=== PATIENT | female | born 1960 | race Caucasian/White ===

== ENCOUNTER → 2022-10-15 14:00 | Outpatient (CLI) | payer OTHER, SELFPAY | PROVIDERS: PCP Nurse Practitioner; Visit Provider Nurse Practitioner | DX: N30.01 Acute cystitis with hematuria (principal); B96.29 Other Escherichia coli [E. coli] as the cause of diseases classified elsewhere | CPT/HCPCS: 87086; 87088; 87186 ==

== ENCOUNTER → 2022-11-13 14:30 | Outpatient (CLI) | payer OTHER, SELFPAY | PROVIDERS: PCP Nurse Practitioner; Visit Provider Nurse Practitioner | DX: R30.0 Dysuria (principal); R31.9 Hematuria, unspecified; B96.29 Other Escherichia coli [E. coli] as the cause of diseases classified elsewhere | CPT/HCPCS: 87086; 87088; 87186 ==

== ENCOUNTER → 2022-11-28 09:45 | Outpatient (CLI) | payer OTHER, SELFPAY | PROVIDERS: PCP Nurse Practitioner; Visit Provider Nurse Practitioner | DX: R30.0 Dysuria (principal) | CPT/HCPCS: 87086 ==

== ENCOUNTER → 2023-01-28 13:45 | Outpatient (CLI) | payer OTHER, SELFPAY | PROVIDERS: PCP Nurse Practitioner; Visit Provider Nurse Practitioner | DX: R30.0 Dysuria (principal); B96.89 Other specified bacterial agents as the cause of diseases classified elsewhere | CPT/HCPCS: 87086; 87088; 87186 ==

== ENCOUNTER → 2023-02-18 13:36 | Outpatient (CLI) | payer OTHER, SELFPAY ==
--- NOTE | 2023-02-18 13:39 | US_ITS ---
PROCEDURE INFORMATION: Exam: US Left Breast, Complete Exam date and time: 02/18/2023 3:11 PM Age: 62 years old Clinical indication: Left breast pain at upper outer quadrant TECHNIQUE: Imaging protocol: Complete ultrasound of all four quadrants of the left breast and the retroareolar regions, including ultrasound of the axilla when performed. COMPARISON: No relevant prior studies available. FINDINGS: Breast: Sonographic images of the left breast including the retroareolar region, all 4 quadrants and the axilla do not demonstrate any solid masses. Few scattered subcentimeter cysts are noted in the upper outer quadrant where the patient reports pain. The dominant cyst measures 0.5 cm in greatest dimension. No architectural distortion or acoustical shadowing. No skin thickening or axillary adenopathy. IMPRESSION: Patient to return for a diagnostic left mammogram for full evaluation of the patient's complaint of focal left breast pain ASSESSMENT: BI-RADS Category 0: Incomplete- Need Additional Imaging Evaluation and/or Prior Mammograms for Comparison
== END ==
PROVIDERS: PCP Nurse Practitioner; Visit Provider Nurse Practitioner
DX: N64.4 Mastodynia (principal)
CPT/HCPCS: 76641

== ENCOUNTER → 2023-04-17 23:22 | Outpatient (CLI) | payer OTHER, SELFPAY ==
[2023-04-17 18:37] LABS: Basophils % 0.4 % (0.1-2.0); Eosinophils # 0.3 K/mm3 (0.0-0.4); Eosinophils % 4.5 % (0.1-12.0); Hematocrit 40.4 % (37.0-47.0); Hemoglobin 12.7 g/dL (12.2-16.2); Lymphocytes # 1.9 K/mm3 (0.7-4.5); Mean Corpuscular HGB Conc 31.6 g/dL (31.8-35.4); Mean Corpuscular Hemoglobin 29.2 pg (27.0-31.2); Mean Corpuscular Volume 92.7 fl (81-99); Mean Platelet Volume 9.1 fl (7.4-10.4); Monocytes # 0.4 K/mm3 (0.1-1.0); Monocytes % 6.1 % (1.7-9.3); Neutrophils # 4.3 K/mm3 (1.8-7.8); Neutrophils % 61.9 % (37.0-80.0); Platelet Count 318 K/mm3 (142-424); Red Blood Count 4.35 M/mm3 (4.20-5.40); Red Cell Distribution Width 12.8 % (11.5-17.5)
[2023-04-17 18:42] LABS: Alanine Aminotransferase 19 U/L (12-78); Albumin Level 3.9 g/dl (3.5-5.0); Albumin/Globulin Ratio 1.5 (1.1-1.8); Alkaline Phosphatase 82 U/L (38-126); Anion Gap 12.2 mEq/L (5-15); Aspartate Amino Transferase 24 U/L (14-36); Bilirubin,Total 0.4 mg/dl (0.2-1.3); Blood Urea Nitrogen 18 mg/dl (7-17); Carbon Dioxide 30 mmol/L (22.0-30.0); Chloride 102 mmol/L (98-107); Chol/HDL Ratio 4.9 (1-3.5); Cholesterol 262 mg/dl (140-200); Estimated Glomerular Filt Rate 73 ml/min (>60); GFR (African American) 89 ML/MIN (>60); Globulin 2.6 g/dL (1.3-3.2); Glucose 123 mg/dl (74-100); HDL Cholesterol 54 mg/dl (40-60); Potassium 4.2 mmoL/L (3.5-5.1); Sodium 140 mmol/L (136-145); Total Protein,Serum 6.5 g/dl (6.3-8.2); Triglycerides 180 mg/dl (30-150); VLDL Cholesterol 36 mg/dL (0-40)
[2023-04-17 18:53] LABS: Direct LDL Cholesterol 154.93 mg/dL (100-129)
[2023-04-17 19:09] LABS: Hemoglobin A1C 6.8 % (4.0-6.0)
[2023-04-17 19:12] LABS: Thyroid Stimulating Hormone 3.64 uIU/mL (0.465-4.68)
[2023-04-17 19:31] LABS: Vitamin B12 363 pg/mL (239-931)
[2023-04-28 19:10] LABS: 1,25 Dihydroxy Vitamin D 64 pg/mL (.); 1,25-Dihydroxy, Vitamin D-2 <10 pg/mL (.); 1,25-Dihydroxy, Vitamin D-3 62 pg/mL (.)
== END ==
PROVIDERS: PCP Nurse Practitioner; Visit Provider Nurse Practitioner
DX: E11.9 Type 2 diabetes mellitus without complications (principal); E78.5 Hyperlipidemia, unspecified; E66.9 Obesity, unspecified; Z68.35 Body mass index [BMI] 35.0-35.9, adult
CPT/HCPCS: 80053; 80061; 82607; 82652; 83036; 84443; 85025

== ENCOUNTER 2023-11-13 17:54 | Outpatient (CLI) | payer OTHER, SELFPAY ==
[2023-11-13 19:19] LABS: Basophils # 0.1 K/mm3 (0-0.2); Basophils % 0.7 % (0.1-2.0); Eosinophils # 0.2 K/mm3 (0.0-0.4); Eosinophils % 2.5 % (0.1-12.0); Hematocrit 40.9 % (37.0-47.0); Hemoglobin 13.3 g/dL (12.2-16.2); Lymphocytes # 2.1 K/mm3 (0.7-4.5); Lymphocytes % 25.8 % (10-50); Mean Corpuscular HGB Conc 32.6 g/dL (31.8-35.4); Mean Corpuscular Hemoglobin 30.6 pg (27.0-31.2); Mean Corpuscular Volume 93.9 fl (81-99); Mean Platelet Volume 9.2 fl (7.4-10.4); Monocytes # 0.5 K/mm3 (0.1-1.0); Monocytes % 6.1 % (1.7-9.3); Neutrophils # 5.2 K/mm3 (1.8-7.8); Neutrophils % 64.9 % (37.0-80.0); Platelet Count 388 K/mm3 (142-424); Red Blood Count 4.36 M/mm3 (4.20-5.40); Red Cell Distribution Width 13.7 % (11.5-17.5)
[2023-11-13 20:03] LABS: Chloride 100 mmol/L (98-107); Potassium 4.2 mmoL/L (3.5-5.1); Sodium 137 mmol/L (136-145)
[2023-11-13 20:06] LABS: Anion Gap 11.2 mEq/L (5-15); Blood Urea Nitrogen 22 mg/dl (7-17); Calcium 9.2 mg/dl (8.4-10.2); Carbon Dioxide 30 mmol/L (22.0-30.0); Estimated Glomerular Filt Rate 73 ml/min (>60); GFR (African American) 88 ML/MIN (>60); Glucose 122 mg/dl (74-100)
== END 2023-11-13 23:59 ==
LOC: LAB.DROPOF 17:54
PROVIDERS: PCP Nurse Practitioner; Visit Provider Nurse Practitioner
DX: Z01.818 Encounter for other preprocedural examination (principal); M25.551 Pain in right hip
CPT/HCPCS: 80048; 85025

== ENCOUNTER 2023-11-14 14:14 | Outpatient (CLI) | payer OTHER, SELFPAY ==
--- NOTE | 2023-11-14 14:30 | ECG_ITS ---
APPROVED REPORT Exam: Resting ECG HR:80 bpm ECG Measurements Heart Rate 80 AXES NH 167 P 72 QRSd 114 QRS -40 QT 368 T 58 QTc 405 Conclusion SINUS RHYTHM LEFT AXIS DEVIATION [QRS AXIS < -30] PATTERN CONSISTENT WITH PULMONARY DISEASE MODERATE INTRAVENTRICULAR CONDUCTION DELAY [110+ ms QRS DURATION] ABNORMAL ECG UNCONFIRMED REPORT Electronically signed by : Fred Galindo MD 11/14/2023 20:06:41
--- NOTE | 2023-11-14 14:42 | XR_ITS ---
FINAL REPORT CLINICAL HISTORY: Pre-op clearance for right hip replacement. Cough. Non smoker, no hx of sx on chest. COMPARISON: None FINDINGS: Two views of the chest were obtained. The heart size and pulmonary vascularity are within normal limits. The mediastinum is normal. No acute pulmonary abnormality is identified. There is no pneumothorax. Moderate degenerative change of the thoracic spine is present. IMPRESSION: No active cardiopulmonary disease. Reviewed, Interpreted and Dictated by Mahesh Montilla III, MD Transcribed by Ana María Sue Authenticated and [facility]
== END 2023-11-14 23:59 ==
LOC: RT 14:15
PROVIDERS: PCP Nurse Practitioner; Visit Provider Nurse Practitioner
DX: Z01.818 Encounter for other preprocedural examination (principal); M25.551 Pain in right hip
CPT/HCPCS: 71046; 93005

== ENCOUNTER 2024-02-06 20:39 | Outpatient (CLI) | payer OTHER, SELFPAY | END 2024-02-06 23:59 | LOC: LAB.DROPOF 20:40 | PROVIDERS: PCP Nurse Practitioner; Visit Provider Nurse Practitioner | DX: R30.0 Dysuria (principal); B96.89 Other specified bacterial agents as the cause of diseases classified elsewhere | CPT/HCPCS: 87086 ==

== ENCOUNTER 2024-03-17 08:08 | Outpatient (CLI) | payer OTHER, SELFPAY ==
[2024-03-17 18:23] LABS: Adenovirus,PCR Not Detected (NotDetected); Bordetella Pertussis Not Detected (NotDetected); Chlamydophila Pneumoniae, PCR Not Detected (NotDetected); Coronavirus 19, PCR Not Detected (NotDetected); Coronavirus 229E Not Detected (NotDetected); Coronavirus NL63 Not Detected (NotDetected); Coronavirus OC43 Not Detected (NotDetected); Coronovirus HKU1,PCR Not Detected (NotDetected); Influenza A, PCR Not Detected (NotDetected); Influenza AH1, 2009 Not Detected (NotDetected); Influenza AH1, PCR Not Detected (NotDetected); Influenza AH3,PCR Not Detected (NotDetected); Influenza B, PCR Not Detected (NotDetected); Mycoplasma Pneumoniae, PCR Not Detected (NotDetected); Parainfluenza 1, PCR Not Detected (NotDetected); Parainfluenza 2, PCR Not Detected (NotDetected); Parainfluenza 3, PCR Not Detected (NotDetected); Parainfluenza 4, PCR Not Detected (NotDetected); Respiratory Syncytial Virus Not Detected (NotDetected); Rhinovirus/Enterovirus Not Detected (NotDetected)
[2024-03-17 18:52] LABS: Basophils # 0.1 K/mm3 (0-0.2); Basophils % 0.8 % (0.1-2.0); Eosinophils # 0.4 K/mm3 (0.0-0.4); Eosinophils % 5.4 % (0.1-12.0); Hematocrit 40.7 % (37.0-47.0); Hemoglobin 12.8 g/dL (12.2-16.2); Lymphocytes % 25.1 % (10-50); Mean Corpuscular HGB Conc 31.4 g/dL (31.8-35.4); Mean Corpuscular Hemoglobin 29.1 pg (27.0-31.2); Mean Corpuscular Volume 92.5 fl (81-99); Mean Platelet Volume 8.8 fl (7.4-10.4); Monocytes # 0.5 K/mm3 (0.1-1.0); Monocytes % 5.8 % (1.7-9.3); Neutrophils % 62.8 % (37.0-80.0); Platelet Count 371 K/mm3 (142-424); Red Blood Count 4.39 M/mm3 (4.20-5.40); Red Cell Distribution Width 13.6 % (11.5-17.5)
[2024-03-17 19:37] LABS: Alanine Aminotransferase 20 U/L (12-78); Albumin/Globulin Ratio 1.4 (1.1-1.8); Alkaline Phosphatase 99 U/L (38-126); Anion Gap 13.1 mEq/L (5-15); Aspartate Amino Transferase 25 U/L (14-36); Bilirubin,Total 0.5 mg/dl (0.2-1.3); Blood Urea Nitrogen 18 mg/dl (7-17); Calcium 9.7 mg/dl (8.4-10.2); Carbon Dioxide 28 mmol/L (22.0-30.0); Chloride 102 mmol/L (98-107); Chol/HDL Ratio 4.7 (1-3.5); Cholesterol 284 mg/dl (140-200); Estimated Glomerular Filt Rate 85 ml/min (>60); GFR (African American) 103 ML/MIN (>60); Globulin 2.8 g/dL (1.3-3.2); Glucose 130 mg/dl (74-100); HDL Cholesterol 60 mg/dl (40-60); Potassium 4.1 mmoL/L (3.5-5.1); Sodium 139 mmol/L (136-145); Total Protein,Serum 6.8 g/dl (6.3-8.2); Triglycerides 271 mg/dl (30-150); VLDL Cholesterol 54 mg/dL (0-40)
[2024-03-17 19:48] LABS: Direct LDL Cholesterol 160.65 mg/dL (100-129)
[2024-03-17 19:54] LABS: 25-OH Vitamin D, Total 22.6 ng/mL (30-100)
[2024-03-17 20:09] LABS: Thyroid Stimulating Hormone 2.61 uIU/mL (0.465-4.68)
[2024-03-17 20:28] LABS: Vitamin B12 374 pg/mL (239-931)
[2024-03-17 21:05] LABS: Hemoglobin A1C 6.7 % (4.0-6.0)
[2024-03-17 22:29] LABS: Creatinine,Urine Random 183 mg/dL (Not Estab.)
[2024-03-17 22:30] LABS: Microalbumin/Creatinine Ratio 5.7
[2024-03-18 02:17] LABS: Human Metapneumovirus Detected (NotDetected)
== END 2024-03-17 23:59 | disposition home or self-care (01) ==
LOC: LAB.DROPOF 03-18 09:52
PROVIDERS: PCP Nurse Practitioner; Visit Provider Nurse Practitioner
DX: J06.9 Acute upper respiratory infection, unspecified (principal); R09.89 Other specified symptoms and signs involving the circulatory and respiratory systems; R53.83 Other fatigue; R53.1 Weakness; R69 Illness, unspecified; I10 Essential (primary) hypertension; E11.9 Type 2 diabetes mellitus without complications; E78.5 Hyperlipidemia, unspecified; K21.9 Gastro-esophageal reflux disease without esophagitis; E55.9 Vitamin D deficiency, unspecified; Z79.899 Other long term (current) drug therapy
CPT/HCPCS: 80053; 80061; 82043; 82306; 82570; 82607; 83036; 84443; 85025; 87086; 87581; 87632; 87635; 87798

== ENCOUNTER 2024-05-26 22:18 | Outpatient (CLI) | payer OTHER, SELFPAY ==
--- NOTE | 2024-05-26 22:24 | XR_ITS ---
PROCEDURE INFORMATION: Exam: XR Chest Exam date and time: 05/26/2024 10:18 PM Age: 63 years old Clinical indication: Other: Rul rales TECHNIQUE: Imaging protocol: Radiologic exam of the chest. Views: 2 views. COMPARISON: CR XR CHEST 2V 11/14/2023 2:46 PM FINDINGS: Lungs: No evidence of acute pulmonary disease or infiltrates Pleural spaces: No large effusion or pneumothorax. Heart/Mediastinum: No evidence of mediastinal widening or cardiac silhouette enlargement; the mediastinum and heart appear within normal limits for contour and size. Bones/joints: No evidence of acute osseous abnormalities within the visualized portions of the thoracic spine and ribs. Osseous structures appear appropriate for patient age. IMPRESSION: No dense parenchymal consolidation, pleural effusion, or pneumothorax.
== END 2024-05-26 23:59 | disposition home or self-care (01) ==
LOC: RAD 22:20
PROVIDERS: PCP Nurse Practitioner; Visit Provider Nurse Practitioner
DX: R09.89 Other specified symptoms and signs involving the circulatory and respiratory systems (principal)
CPT/HCPCS: 71046

== ENCOUNTER 2024-06-08 07:43 | Outpatient (CLI) | payer OTHER, SELFPAY ==
--- NOTE | 2024-06-08 07:44 | CA_ITS ---
APPROVED REPORT EXAM: Comprehensive 2D, Doppler, and color-flow Echocardiogram Geoscience Laboratory Technician: Destiny Real RDCS Ht: 5 ft 8 in Wt: 220lbs BSA: 2.13 BP: 136/68 mmHg Indications: MURMUR M-Mode Dimensions RVDd 2.34 cm (0.9-2.6) LA Diam 3.87 cm (1.9-4.0) LVDd 4.36 cm (3.5-5.7) LVDs 2.50 cm (3.5-5.7) IVSd 1.13 cm (0.6-1.1) PWd 1.17 cm (0.6-1.1) EF (Teich) 74.00% FS 42.70% EDV (Teich) 85.80 mL TAPSE 2.74 (<1.7) ESV (Teich) 22.30 mL LV Diastology E Decel Time 180 (160-240 msec) E/A Ratio 1.2 Mitral Valve MV E Max Steve. 84.0 (40-130 cm/s) MV A Velocity 73.0 (40-130 cm/s) E/A Ratio 1.16 MV PHT 53.0 ms Left Ventricle The left ventricle is normal size. The left ventricular systolic function is normal. The left ventricular ejection fraction is within the normal range. There is increased LV wall thickness. There is normal LV segmental wall motion. Transmitral Doppler flow pattern suggests impaired LV relaxation. LVEF is 60%. Right Ventricle The right ventricle is normal size. The right ventricular systolic function is normal. Atria The left atrium size is normal. The right atrium size is normal. There is no Doppler evidence of interatrial shunt. Aortic Valve The aortic valve opens well. There is no aortic valvular stenosis. No aortic regurgitation is present. Mitral Valve The mitral valve is normal in structure. No evidence of mitral valve stenosis. Trace mitral regurgitation. Tricuspid Valve The tricuspid valve leaflets are thin and pliable. Trace tricuspid regurgitation. There is insufficient TR jet to estimate RVSP. Pulmonic Valve The pulmonary valve is normal in structure. Trace pulmonic regurgitation. Great Vessels The aortic root is normal in size. The ascending aorta is normal in size. IVC is normal in size and collapses >50% with inspiration. Pericardium There is no pericardial effusion. Other Information Study Quality: Fair Conclusion Normal biventricular systolic function. No significant valvular stenosis or regurgitation. Electronically signed by : Radha Altamirano MD 06/08/2024 12:11:56
== END 2024-06-08 23:59 | disposition home or self-care (01) ==
LOC: RT 07:44
PROVIDERS: PCP Nurse Practitioner; Visit Provider Nurse Practitioner
DX: R01.1 Cardiac murmur, unspecified (principal)
CPT/HCPCS: 93306

== ENCOUNTER 2025-06-16 09:52 | Outpatient (CLI) | payer OTHER, SELFPAY ==
[2025-06-16 17:22] LABS: Hematocrit 39.5 % (37.0-47.0); Hemoglobin 12.8 g/dL (12.2-16.2); Immature Granulocytes % 0.2 %; Mean Corpuscular HGB Conc 32.4 g/dL (31.8-35.4); Mean Corpuscular Hemoglobin 29.9 pg (27.0-31.2); Mean Corpuscular Volume 92.3 fl (81-99); Nucleated Red Blood Cells % 0 %; Platelet Count 339 K/mm3 (142-424); Red Blood Count 4.28 M/mm3 (4.20-5.40); Red Cell Distribution Width-SD 46.5 fL; White Blood Count 8.2 K/mm3 (4.8-10.8)
[2025-06-16 18:09] LABS: Hemoglobin A1C 6.7 % (4.0-6.0)
[2025-06-16 18:45] LABS: Alanine Aminotransferase 17 U/L (12-78); Albumin Level 4.4 g/dl (3.5-5.0); Albumin/Globulin Ratio 1.7 (1.1-1.8); Alkaline Phosphatase 87 U/L (38-126); Anion Gap 10.2 mEq/L (5-15); Aspartate Amino Transferase 22 U/L (14-36); Bilirubin,Total 0.5 mg/dl (0.2-1.3); Blood Urea Nitrogen 19 mg/dl (7-17); Calcium 9.4 mg/dl (8.4-10.2); Carbon Dioxide 30 mmol/L (22.0-30.0); Chloride 102 mmol/L (98-107); Cholesterol 282 mg/dl (140-200); Creatinine,Serum 0.70 mg/dl (0.52-1.04); Estimated Glomerular Filt Rate 85 ml/min (>60); GFR (African American) 103 ML/MIN (>60); Globulin 2.6 g/dL (1.3-3.2); Glucose 97 mg/dl (74-100); HDL Cholesterol 58 mg/dl (40-60); Potassium 4.2 mmoL/L (3.5-5.1); Sodium 138 mmol/L (136-145); Total Protein,Serum 7.0 g/dl (6.3-8.2); Triglycerides 259 mg/dl (30-150)
[2025-06-16 19:02] LABS: 25-OH Vitamin D, Total 21.7 ng/mL (30-100)
[2025-06-16 19:16] LABS: Thyroid Stimulating Hormone 1.54 uIU/mL (0.465-4.68)
[2025-06-16 19:33] LABS: Hepatitis C Ab Qual. W/ RFX NEGATIVE (Negative)
[2025-06-16 19:34] LABS: Vitamin B12 499 pg/mL (239-931)
[2025-06-18 09:27] LABS: Hepatitis B Surface Antigen Negative (Negative)
--- OUTSIDE RECORDS SUMMARY | 2025-06-18 09:54 | XMS_ITS | Encounter Summary ---
Author Organization [place] [address] Care Team Providers Care Freight Traffic Consultant Name Role Phone Carla Urias MD Primary Care Provi crista Unavailable Jatin Brar MD Unavailable [phone] Georgi Preston DC Unavailable [phone] John Garza MD Unavailable [phone] Amira Padilla APRN Primary Care Provider [phone] Encounter Details Date Type Department Care Team (Late st Contact Info) Description 05/09/2017 Orders Only SEP Gastro [facility] [address] [facility] [address] [place] [address] Leslie Alston MD [address] [place] [address] Social History Tobacco Use Types Packs/Day Years Used Date Smoking Tobacco: Never Smokeless Tobacco: Never Alcohol Use Standard Drinks/Week Comments No 0 (1 standard drink = 0.6 oz pur e alcohol) Sexually Active Control Partners Comments Yes Male Comments No Sex and Gender Information Value Date Recorded Sex Assigned at Not on file Legal Sex Female 4:28 AM EDT Gender Identity Not on file Sexual Orientation Not on file documented as of this encounter Plan of Treatment Not on file documented as of this encounter Goals Goal Patient Goal Type Associated Problems Recent Progress Patient-Stated? Author Blood Pressure < 140/90 Blood Pressure 159/82(2021 9:47 AM EDT) No William, Cara N, RMA BMI (Calculated) < 30 General 34.7(09/17/20 10:24 AM EST) No William, Cara N, RMA Eat better, exercise, reach an ideal body weight General No Mela Mckeon, RMA HEMOGLOBIN A1C < 7.0 Result Component 6.2( 9:18 AM EST) No William, Cara N, RMA documented as of this encounter Procedures Procedure Name Priority Date/Time Associated Diagnosis Comments [facility]ED EGD Routine 05/09/2017 12:00 PM EDT documented in this encounter Results * [facility]ED EGD (05/09/2017 12:00 PM EDT) 05/09/2017 12:0 0 PM EDT Impressions [facility] - 05/13/2017 7:30 AM EDT Normal mucosa in the whole examined duodenum. Erythema and granularity in the antrum and pre-pyloric region compatible with non-erosive gastritis. (Biopsy). Irregularity in the Z-line and gastroesophageal junction. (Biopsy). Polyps in the fundus. (Biopsy). Plan: Await pathology results. Continue current medication for acid suppression 30 minutes before a meal. This section is an excerpt of the full report. us Leslie Alston MD GI PROCEDURE ORDERABLES Edite d Result - Final [facility] [address] [place] [address] documented in this encounter Visit Diagnoses Not on filedocumented in this encounter Care Teams Freight Traffic Consultant Relationship Specialty Start Date End Date Carla Urias MD PCP - General Family Medicine 08/04/13 06/05/22 Amira Padilla APRN [address] [facility] [address] [place] [address] [place] [id number] PCP - General Nurse Practitioner 06/06/22 Jatin Brar MD [address] [place] [id number] Consulting Physician Internal Medicine-Gastroenterolo gy 08/18/13 Georgi Preston DC [address] [place] [id number] Consulting Physician Chiropractor 12/29/15 John Garza MD [address] [place] [address] Consulting Physician Orthopaedic Surgery 03/14/16 documented as of this encounter
--- OUTSIDE RECORDS SUMMARY | 2025-06-18 09:55 | XMS_ITS | Clinical Summary ---
Author Organization [facility] Address [address] [place] [address] [place] [address] Phone Care Team Providers Care Head Inspector Name Role Phone Jatin Brar MD Unavailable [phone] Georgi Preston DC Unavailable [phone] John Garza MD Unavailable [phone] Amira Padilla APRN Primary Care Provider [phone] Allergies Active Allergy Reactions Criticality Noted Date Comments Levofloxacin Myalgia High 07/13/2013 Severe myalgias Atorvastatin Myalgia Low 01/29/2017 Penicillins Shortness Of Breath Medium Medications Inhalational Spacing Device (AEROCHAMBER MV) Misc SpacerIndications :Mild persistent asthma without complication Use with symbicort 1 Device 6 Active albuterol (PROVENTIL HFA;VENTOLIN HFA) 90 mcg/actuation Inhl HFA Aerosol InhalerIndication s:once for PFT testing only Inhale 2 Puffs into the lungs every 4 hours as needed for Wheezing or Shortness of Breath. 18 g 2 7 Active Cholecalciferol, Vitamin D3, 125 mcg (5,000 unit) Oral TabletIndications :Vitamin D deficiency Take 1 Tablet by mouth daily. Take 5,000units every other day. Take 10,000units on opposite days. 90 Tablet 3 1 Active lisinopriL-hydroc hlorothiazide (PRINZIDE;ZESTORE TIC) 20-25 mg Oral Tablet TAKE 1/2 TABLET BY MOUTH TWICE DAILY. 30 Tablet 2 Active pantoprazole (PROTONIX) 40 mg Oral Tablet, Delayed Release (E.C.)Indications :Erosive gastritis Take 1 Tablet by mouth 2 times daily. 60 Tablet 11 2 Active omeprazole (PRILOSEC) 40 mg Oral Capsule, Delayed Release(E.C.)Aury cations:Gastroeso phageal reflux disease, unspecified whether esophagitis present,Esophagea l dysphagia,Persona l history of colonic polyps,Erosive gastritis Take 1 Capsule by mouth 2 times daily. 60 Capsule 3 2 Active Active Problems Patient Care Coordination No te Formatting of this note migh t be different from the original. Hypertension: Nursing: Check blood pressure at each visit. Hypercholesterolemia: Nursing: Check FLP at least annually, and LFT every 6 months. 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 Colon polyps 10/24/2014 Overview (10/24/2014): Tubular adenoma in 2008 Type 2 diabetes mellitus without complication Overview (01/12/2022): Lab Results Component Value Date HGBA1C 6.8 (H) 07/25/2021 HGBA1C 6.2 (A) 02/09/2021 HGBA1C 6.3 04/11/2018 Managing her blood sugar with diet Declines medication assistance On ASA, lisinopril, Has statin intolerance. rx for zetia and nexeltol in past but declines Angina pectoris 09/30/2013 Overview (09/30/2013): Had myocardial perfusion scan - normal on 09/30/13. EF 67% Stricture esophagus 08/18/2013 Overview (08/18/2013): At gastroesophageal junction. Erosive gastritis 08/18/2013 Overview (08/18/2013): On EGD 08/18/2013 Vitamin D deficiency 01/31/2012 Overview (07/06/2021): Off replacement. Hyperlipidemia 01/31/2012 Assessment & Plan (07/06/2021 5:25 PM EDT): Diet controlled currently. Has had statin intolerance in past. [place] of toe 01/15/2012 Nail fungus 01/15/2012 AR (allergic rhinitis) HTN (hypertension) Overview (07/06/2021): BP Readings from Last 3 Encounters: 07/06/21 142/88 02/09/21 144/88 02/02/21 (!) 158/92 On ACEi/HCTZ Limit salt. Avoid caffeine. Work on weight loss. Mild intermittent asthma Resolved Problems Problem Noted Date Diagnosed Date Resolved Date BMI 37.0-37.9, adult 04/29/2015 021 Glucose intolerance (impaire d glucose tolerance) 09/14/2013 02/07/2015 Otitis media 01/12/2013 04/29/2015 URI (upper respiratory infection) 11/18/2012 09/17/2017 Skin lesions, generalized 01/31/2012 Skin yeast infection 01/15/2012 015 Ear congestion 11/08/2011 04/29/2015 Fibromyalgia 06/15/2011 Immunizations Immunization Administration Dates Next Due Influenza Vaccine Quadrivalent 08/05/2017,2015,08/24/2014 Pneumococcal Polysaccharide 23 Valent 03/05/2017 Td (Adult), Absorbed 01/09/1997 Tdap 03/23/2010 Surgical History Surgery Date Site/Laterality Comments SECTION SINUS SURGERY HYSTERECTOMY 11/04/2001 - 11/03/2002 still has ovaries, prolapse UPPER GASTROINTESTINAL ENDOSCOPY 08/04/2013 - 09/03/2013 COLONOSCOPY 11/04/2008 - 11/03/2009 UPPER GASTROINTESTINAL ENDOSCOPY 10/19/14 esophageal stricture, fundal gland polyps, erosive gastritis, normal duodenum Medical History Medical History Date Comments AR (allergic rhinitis) HTN (hypertension) Mild intermittent asthma Prolapsed uterus TIA (transient ischemic attack) Glucose intolerance (pre-diabetes) Family History Medical History Relation Name Comments Trigeminal nerve issues Brother Aneurysm Father Bertram Massey Arrhythmia Father Bertram Massey A-fib COPD Father Bertram Massey Diabetes Father Bertram Massey due to chronic steroids Heart Disease Father Bertram Massey Heart Failure Father Bertram Massey Lung Cancer Father Bertram Massey Cancer Maternal Grandfather Prostat e Heart Disease Maternal Grandmother Diabetes Mother Melissa Massey Cancer Paternal Grandfather Heart Disease Paternal Grandmother Breast Cancer Neg Hx Colon Cancer Neg Hx Relation Name Status Comments Brother Alive Father Bertram Massey Maternal Grandfather Maternal Grandmother Mother Melissa Massey Alive Paternal Grandfather Paternal Grandmother Sister 1 Alive Sister 2 Alive Social History Tobacco Use Types Packs/Day Years Used Date Smoking Tobacco: Never Smokeless Tobacco: Never Tobacco Cessation:Counseling Given: Yes Alcohol Use Standard Drinks/Week Comments No 0 (1 standard drink = 0.6 oz pur e alcohol) PHQ-2 Answer Date Recorded PHQ-2 Total Score 0 07/06/2021 Sexually Active Control Partners Comments Yes Male Comments No Sex and Gender Information Value Date Recorded Sex Assigned at Not on file Legal Sex Female 4:28 AM EDT Gender Identity Not on file Sexual Orientation Not on file Obstetrics History Para Term AB IAB SAB Ectopic Multiple Livin g Live Births 4 4 3 1 4 Date Outcome GA Total Labor Labor/2nd/3rd Weight Sex Type Anes PTL Peace A1 A5 Name Clin Term Term Term Neonat al Complications:Toxemia in pre gnancy,Pre-eclampsia Living Status Comments:Lived 6 days. born at 6 months Last Filed Vital Signs Vital Sign Reading Time Taken Comments Blood Pressure 159/82 07/10/2022 9:47 AM EDT Pulse 79 07/10/2022 9:47 AM EDT Temperature 36.3 C (97.3 F) 07/10/2022 9:47 AM EDT Respiratory Rate 20 06/06/2022 8:23 AM EDT Oxygen Saturation 97% 06/06/2022 9:53 AM EDT Inhaled Oxygen Concentration - - Weight 100.2 kg (221 lb) 09/17/2024 10:24 AM EST Height 170.2 cm (5' 7 ) 09/17/2024 10:24 AM EST Body Mass Index 34.61 09/17/2024 10:24 AM EST Plan of Treatment Health Maintenance Due Date Last Done Comments Annual Wellness Exam 1965 Diabetic Eye Exam 1980 HPV/Pap Cotest 1992 Cologuard 2007 FIT 2007 Sigmoidoscopy 2007 Virtual Colonography 2007 Zoster (1 of 2) 2012 Cervical Cancer Screening 10/09/2016 Pap Smear 10/09/2016 10/09/2013, 11/04/2008 Pneumococcal Vaccine 50+ (2 of 2 - PCV) 03/05/2018 03/05/2017 Kidney Health: uACR 04/11/2019 04/11/2018, 03/06/2017, 02/27/2016, Additional history exists DTaP/TDaP/Td (2 - Td or Tdap) 03/23/2020 03/23/2010, 01/09/1997 Hemoglobin A1c 07/15/2022 01/12/2022, 07/06, 02/09/2021, Additional history exists Kidney Health: eGFR 07/25/2022 07/25/2021, 04/11/2018, 2017, Additional history exists Lipids 07/25/2022 07/25/2021, 06/06/2018, 2017, Additional history exists RSV or 60+ (1 - Risk 60-74 years 1-dose series) 2022 COVID-19 Vaccine ( season) 2024 07/15/2021, 06/24/2021, 06/04/2021 Influenza Vaccine (#1) 2025 7, 10/08/2016, 08/09/2015 (Declined), Additional history exists Breast Cancer Screening 09/17/2026 09/17/20 24, 01/11/2023, 08/21/2021, Additional history exists Colon Cancer Screening 06/06/2027 Colonoscopy 06/06/2027 06/06/2022, 05/09/2017 Hepatitis C Screening Completed 04/11/2018 Hepatitis B Vaccine Aged Out No longe r eligible based on patient's age to complete this topic Meningococcal B Vaccine Aged Out No l onger eligible based on patient's age to complete this topic Goals Goal Patient Goal Type Associated Problems Recent Progress Patient-Stated? Author Blood Pressure < 140/90 Blood Pressure 159/82(2021 9:47 AM EDT) No Cara William, RMA BMI (Calculated) < 30 General 34.7(09/17/20 10:24 AM EST) No Cara William, RMA Eat better, exercise, reach an ideal body weight General No Mela Mckeon, RMA HEMOGLOBIN A1C < 7.0 Result Component 6.2( 9:18 AM EST) No Cara William, RMA Procedures Procedure Name Priority Date/Time Associated Diagnosis Comments MM MAMMO DIGITAL ROCIO SCREEN BILAT Routine 09/17/2024 10:41 AM EST Encounter for screening mammogram for malignant neoplasm of breast GMED EGD-COLONOSCOPY Routine 06/06/2022 9:40 AM EDT Gastroesophageal reflux disease, unspecified whether esophagitis present Esophageal dysphagia Personal history of colonic polyps Erosive gastritis POCT GLYCATED HEMOGLOBIN, TOTAL Routine 01/12/2022 9:18 AM EST Type 2 diabetes mellitus without complication, without long-term current use of insulin (HCC) COMPREHENSIVE METABOLIC PANEL Routine 07/25/2021 10:03 AM EDT Well adult exam LIPID PANEL REFLEX Routine 07/25/2021 10 :03 AM EDT Mixed hyperlipidemia MICROALBUMIN/CREATINI NE RATIO URINE Routine 04/11/2018 9:17 AM EDT Type 2 diabetes mellitus with hyperlipidemia (HCC) ACUTE HEPATITIS PANEL Routine 04/11/2018 8:38 AM EDT Well woman exam (no gynecological exam) Need for hepatitis C screening test HM PAP SMEAR Routine 11/04/2008 from Last 3 Months or Most Recently Relevant to Health Maintenance Results * MM MAMMO DIGITAL ROCIO SCREEN BILAT (09/17/2024 10:41 AM EST) Anatomical Region Laterality Modality Breast Bilateral Mammography 09/17/2024 10:4 1 AM EST Impressions 09/17/2024 11:27 AM EST Negative ([id number]) RECOMMENDATION: Routine Screening Mammogram in 1 Year Bilateral No additional recommendation No additional laterality COMMENTS: Narrative 09/17/2024 11:27 AM EST EXAM: MM MAMMO DIGITAL ROCIO SCREEN BILAT EXAM DATE: 09/17/2024 10:41 AM INDICATION: Z12.31-Encounter for screening mammogram for malignant neoplasm of [id number]-CM COMPARISON STUDIES: Compared with prior studies the most recent being 01/11/2023 MM MAMMO DIGITAL ROCIO SCREEN BILAT at [facility] 08/21/2021 MM MAMMO DIGITAL ROCIO SCREEN BILAT at [facility] 10/01/2012 MM MAMMO DIGITAL SCREENING W CAD BILAT at [facility] TISSUE DENSITY: The breasts are heterogeneously dense, which may obscure small masses. FINDINGS: No mammographic evidence of malignancy. Procedure Note Jatin Farah MD - 09/17/2024 EXAM: MM MAMMO DIGITAL ROCIO SCREEN BILAT EXAM DATE: 09/17/2024 10:41 AM INDICATION: Z12.31-Encounter for screening mammogram for malignantneoplasm of [id number] COMPARISON STUDIES: Compared with prior studies the most recent being 01/11/2023 MM MAMMO DIGITAL ROCIO SCREEN BILAT at [facility] 08/21/2021 MM MAMMO DIGITAL ROCIO SCREEN BILAT at [facility] 10/01/2012 MM MAMMO DIGITAL SCREENING W CAD BILAT at [facility] TISSUE DENSITY: The breasts are heterogeneously dense, which may obscuresmall masses. FINDINGS: No mammographic evidence of malignancy. IMPRESSION: Negative ([id number]) RECOMMENDATION: Routine Screening Mammogram in 1 Year Bilateral No additional recommendation No additional laterality COMMENTS: Amira Padilla [employer] IMG MAMMOGRAPHY ORDERABLES Fin al Result * GMED EGD-COLONOSCOPY (06/06/2022 9:40 AM EDT) 06/06/2022 9:40 AM EDT Impressions [facility] - 06/06/2022 9:37 AM EDT Plan: This section is an excerpt of the full report. Clayton Ambrocio MD GI PROCEDURE ORDERABLES Final Result [facility] [address] [place] [address] * (ABNORMAL) POCT GLYCATED HEMOGLOBIN, TOTAL (01/12/2022 9:18 AM EST) Pathologist [facility] Hemoglobin A1C 6.2(A) 4 - 6 % SEP OFFICE Lot Number SEP OFFICE Expiration Date SEP OFFICE SeriAl # SEP OFFICE 01/12/2022 9:18 AM EST Louise Lechuga APRN POINT OF CARE TEST ORDERABL ES Final Result Performing Organization Address City/[facility]/ZIP Co de Phone Number SEP OFFICE * (ABNORMAL) LIPID PANEL REFLEX (07/25/2021 10:03 AM EDT) Cholesterol 288(H) <200 mg/dL 07/25/2021 3:22 PM EDT [facility] [employer] Comment: < 200 Desirable 200 - 239 Borderline High >= 240 High Triglyceride 227(H) <150 mg/dL 07/25/2021 3:22 PM EDT [employer] Comment: < 150 Normal 150 - 199 Borderline High 200 - 499 High >= 500 Very High HDL 50 >=40 mg/dL 07/25/2021 3:22 PM EDT [facility] Comment: > 60 Optimal 40 - 60 Acceptable < 40 Low LDL Calculated 194(H) <100 mg/dL 07/25/2021 3:22 PM EDT [facility] Non-HDL-C Calculated 238(H) <=129 mg/dL 07/25/2021 3:22 PM EDT [facility] Comment: <130 Desirable 130-159 Above Desirable 160-189 Borderline High 190-219 High >= 220 Very High Fasting Specimen? Yes None 021 3:22 PM EDT [facility] Blood VENOUS BLOOD / Unknown Venipuncture / Unknown 07/25/2021 10:03 AM EDT 07/25/2021 10:03 AM EDT Louise Lechuga [employer] CHEMISTRY ORDERABLES Final Result [facility] [address] [facility] , [address] [place] [id number] [facility] [address] [place] [address] * (ABNORMAL) COMPREHENSIVE METABOLIC PANEL (07/25/2021 10:03 AM EDT) Sodium 141 136 - 145 mmol/L 07/25/2021 3:22 PM EDT [facility] Potassium 4.2 3.5 - 5.0 mmol/L 07/25/2021 3:22 PM EDT [facility] Chloride 101 98 - 107 mmol/L 07/25/2021 3:22 PM EDT [facility] Total CO2 28 22 - 29 mmol/L 07/25/2021 3:22 PM EDT [facility] Anion Gap 12 7 - 16 mmol/L 07/25/2021 3:22 PM EDT [facility] Calcium 9.7 8.6 - 10.4 mg/dL 07/25/2021 3:22 PM EDT [facility] Glucose Lvl 114(H) 74 - 100 mg/dL 07/25/2021 3:22 PM EDT [facility] BUN 16 6 - 20 mg/dL 07/25/2021 3:22 PM EDT [facility] Creatinine 0.79 0.51 - 1.30 mg/dL 07/25/2021 3:22 PM EDT [facility] Albumin 4.5 3.5 - 5.2 gm/dL 07/25/2021 3:22 PM EDT [facility] Total Protein 7.0 6.4 - 8.3 gm/dL 07/25/2021 3:22 PM EDT [facility] Bili Total 0.4 0.1 - 1.3 mg/dL 07/25/2021 3:22 PM EDT [facility] ALT 15 <=41 U/L 07/25/2021 3:22 PM EDT [facility] AST 17 <=40 U/L 07/25/2021 3:22 PM EDT [facility] Alk Phos 74 36 - 123 U/L 07/25/2021 3:22 PM EDT [facility] GFR Afr Am 95 >=60 mL/min/1.7 3 m2 07/25/2021 3:22 PM EDT [facility] GFR Non Afr Am 83 >=60 mL/min/1.7 3 m2 07/25/2021 3:22 PM EDT [facility] Comment: This estimated GFR was calculated using CKD-EPI equation which is modified based on ethnicity for Non Americans and Americans. Both results are reported since it is not always possible to determine the patient's ethnicity. This equation should only be used for individuals 18 and older. It has not been validated for use with the elderly (>70 years), women, or in some racial or ethnic subgroups, such as Hispanics. The equation will be less accurate in people with differences in nutritional status or muscle mass. Blood VENOUS BLOOD / Unknown Venipuncture / Unknown 07/25/2021 10:03 AM EDT 07/25/2021 10:03 AM EDT Louise Lechuga APRN CHEMISTRY ORDERABLES Final Result [facility] [place] [address] [facility] , [place] [address] [facility] [address] [place] [id number] * MICROALBUMIN/CREATININE RATIO URINE (04/11/2018 9:17 AM EDT) Urine Microalb <12.0 mg/L 04/12/2018 1:53 AM EDT [facility] Urine Creatinine 145.2 mg/dL 04/12/2018 1:53 AM EDT [facility] Ur Microalb/Creat 0 - 30 mg/g 04/12/2018 1:53 AM EDT [facility] Comment: Unable to calculate due to value outside linearity Unable to calculate due to value outside linearity Urine STRUCTURE OF URINARY TRACT PROPER / Unknown 04/11/2018 9:17 AM EDT 04/11/2018 9:17 AM EDT us Carla Tellez MD URINE ORDERABLES Fi nal Result Performing Organization Address [facility] Co de Phone Number [facility] [address] [facility] , [address] [place] [phone] [facility] [address] [place] [id number] * ACUTE HEPATITIS PANEL (04/11/2018 8:38 AM EDT) Hep Bs Ag Non-Reacti ve Non-Reacti ve 04/11/2018 5:15 PM EDT [facility] Hep B Core IgM Non-Reacti ve Non-Reacti ve 04/11/2018 5:15 PM EDT [facility] Hep A IgM Non-Reacti ve Non-Reacti ve 04/11/2018 5:15 PM EDT [facility] Hep C Ab Non-Reacti ve Non-Reacti ve 04/11/2018 5:15 PM EDT [facility] Blood Venipuncture / Unknown 04/11/2018 8:38 AM EDT 04/11/2018 8:38 AM EDT us Carla Tellez MD CHEMISTRY ORDERABLE S Final Result [facility] [place] [address] [facility] , [place] [address] * PAP SMEAR (11/04/2008) Impressions Elidia Clifton, EVERT - 11/04/20082008 WNL us Historical Provider HEALTH MAINTENANCE Final Res ult from Last 3 Months or Most Recently Relevant to Health Maintenance Insurance [facility] [address] * Guarantor: [facility] Account Type Relation to Patient Date of Phone Billing Address [employer] Other [address] [facility] Attn: Chelsea Galleg[facility] [address] [place] [id number] Care Teams Head Inspector Relationship Specialty Start Date End Date Amira Padilla APRN [address] [facility] [address] [place] [address] PCP - General Nurse Practitioner 06/06/22 Jatin Brar MD [address] [place] [phone] Consulting Physician Internal Medicine-Gastroenterolog y 08/18/13 Georgi Preston DC [address] [place] [phone] Consulting Physician Chiropractor 12/29/15 John Garza MD [address] [place] [phone] Consulting Physician Orthopaedic Surgery 03/14/16
--- OUTSIDE RECORDS SUMMARY | 2025-06-18 09:55 | XMS_ITS | Clinical Summary ---
Author Organization [facility] Address [address] [place] [address] Care Team Providers Care Practice Support Specialist Name Role Phone Brennan To M.D. Primary Care Provider + Source Comments [facility] is fully rolled out with thefollowing exceptions:General Clinical Research [facility] Allergies Active Allergy Reactions Criticality Noted Date Comments Penicillins Rash 06/10/2013 Medications Fluticasone Propionate (FLONASE NA) 1 Squirt every 24 hours. Active montelukast (SINGULAIR) 10 MG tablet Take 10 mg by mouth 1 time a day. Active ciprofloxacin-d examethasone (CIPRODEX) 0.3-0.1 % otic suspension Instill 4 drops twice/day for 7 days to affected/drain ing ear/s. Ciprodex coupon: RxBIN: [id number]; RxPCN: [place]; RxGRP: [id number]; VISION MIXER: ([id number]) ID #: [id number] 1 Bottle 0 3 Active lisinopril-hydr ochlorothiazide (PRINZIDE) 10-12.5 MG tablet Take 2 Tabs by mouth 1 time a day. 4 Active cholecalciferol (VITAMIN D) 2000 UNITS capsule Take 2,000 Units by mouth 1 time a day. Active Ranitidine HCl (ZANTAC 75 PO) Take 1 Tab by mouth 1 time a day. Active nystatin (MYCOSTATIN) 048591 UNIT/ML oral suspension Take 1 mL by mouth 1 time a day. Active Family History Medical History Relation Name Comments Bleeding Prob Neg Hx Hearing Loss Neg Hx Malignant Hyperthermia Neg Hx Social History Tobacco Use Types Packs/Day Years Used Date Smoking Tobacco: Never Assessed Comments Unknown Sex and Gender Information Value Date Recorded Sex Assigned at Not on file Legal Sex Female 11:52 AM EDT Gender Identity Not on file Sexual Orientation Not on file Last Filed Vital Signs Vital Sign Reading Time Taken Comments Blood Pressure - - Pulse - - Temperature - - Respiratory Rate - - Oxygen Saturation - - Inhaled Oxygen Concentration - - Weight 105.9 kg (233 lb 7.5 oz) 016 11:16 AM EDT Height - - Body Mass Index - - Plan of Treatment Health Maintenance Due Date Last Done Comments MMR IMMUNIZATION (1 of 1 - S tandard series) 1963 DTAP/Tdap/Td IMMUNIZATION (1 - Tdap) 1969 VARICELLA IMMUNIZATION (1 of 2 - 13+ 2-dose series) 1975 COVID-19 Vaccine ( - 2023-2 5 season) 2024 AMB SEASONAL FLU VACCINE (#1) 09/04/2025 Respiratory Syncytial Virus (RSV) >60yo or (1 - 1-dose 75+ series) 2037 HEPATITIS B IMMUNIZATION Aged Out No longer eligible based on patient's age to complete this topic HIB IMMUNIZATION Aged Out No longer e ligible based on patient's age to complete this topic HPV IMMUNIZATION Aged Out No longer e ligible based on patient's age to complete this topic IPV IMMUNIZATION Aged Out No longer e ligible based on patient's age to complete this topic MCV4 IMMUNIZATION Aged Out No longer eligible based on patient's age to complete this topic MENINGOCOCCAL B VACCINE Aged Out No l onger eligible based on patient's age to complete this topic Respiratory Syncytial Virus (RSV) <20mo Aged Out No longer eligible b ased on patient's age to complete this topic Care Teams Practice Support Specialist Relationship Specialty Start Date End Date Brennan To M.D. [place] [address] [place] [address] PCP - General External Family Practice 06/10/13
--- OUTSIDE RECORDS SUMMARY | 2025-06-18 09:55 | XMS_ITS | Encounter Summary ---
Author Organization [place] [address] Care Team Providers Care Advertising Columnist Name Role Phone Carla Urias MD Primary Care Provi crista Unavailable Jatin Brar MD Unavailable [phone] Georgi Preston DC Unavailable [phone] John Garza MD Unavailable [phone] Amira Padilla APRN Primary Care Provider [phone] Encounter Details Date Type Department Care Team (Late st Contact Info) Description 05/09/2017 Orders Only SEP Gastro [facility] [address] [facility] [address] [place] [address] Leslie Alston MD [address] [place] [address] Social History Tobacco Use Types Packs/Day Years [...] Name Priority Date/Time Associated Diagnosis Comments [facility] COLONOSCOPY Routine 05/09/2017 12:1 5 PM EDT documented in this encounter Results * [facility] COLONOSCOPY (05/09/2017 12:15 PM EDT) 05/09/2017 12:1 5 PM EDT Impressions [facility] - 05/09/2017 1:18 PM EDT Polyp (4 mm) in the cecum. (Biopsy). Mild diverticulosis of the whole colon. Internal hemorrhoids. Plan: Await pathology results. Colonoscopy in 5 years This section is an excerpt of the full report. us Leslie Alston MD GI PROCEDURE ORDERABLES Final Result [facility] [address] [place] [address] documented in this encounter Visit Diagnoses Not on filedocumented in this encounter Care Teams Advertising Columnist Relationship Specialty Start Date End Date Carla Urias MD PCP - General Family Medicine 08/04/13 06/05/22 Amira Padilla APRN [address] [facility] [address] [place] [address] PCP - General Nurse Practitioner 06/06/22 Jatin Brar MD [address] [place] [phone] Consulting Physician Internal Medicine-Gastroenterolo gy 08/18/13 Georgi Preston DC [address] [place] [phone] Consulting Physician Chiropractor 12/29/15 John Garza MD [address] [place] [phone] Consulting Physician Orthopaedic Surgery 03/14/16 documented as of this encounter
== END 2025-06-16 23:59 | disposition home or self-care (01) ==
LOC: LAB.DROPOF 06-18 09:52
PROVIDERS: PCP Nurse Practitioner; Visit Provider Nurse Practitioner
DX: E11.9 Type 2 diabetes mellitus without complications (principal); I10 Essential (primary) hypertension; E78.5 Hyperlipidemia, unspecified; K21.9 Gastro-esophageal reflux disease without esophagitis; E55.9 Vitamin D deficiency, unspecified; Z11.59 Encounter for screening for other viral diseases; E66.9 Obesity, unspecified
CPT/HCPCS: 80053; 80061; 82043; 82306; 82570; 82607; 83036; 84443; 85025; 86803; 87340; 87389